=== PATIENT | male | born 1955 | race Caucasian/White ===

== ENCOUNTER 2017-04-15 07:54 | Observation (INO) | payer BC ==
[~2017-04-15] VITALS: Ht 182.9 cm; Wt 117.3 kg
[2017-04-15] VITALS (10 sets, daily range): BP systolic 114–172; BP diastolic 58–87
[2017-04-15] MEDS ORDERED: CARV12.52 PO (08:05)
[2017-04-15] MEDS ORDERED: CYCL10TA2 PO (08:05)
[2017-04-15] MEDS ORDERED: POTA20TA4 PO (08:05)
[2017-04-15] MEDS ORDERED: TRAM50TA PO (08:05)
[2017-04-15] MEDS ORDERED: OMEP40CA5 PO (08:05)
[2017-04-15] MEDS ORDERED: LEVO150T5 PO (08:05)
[2017-04-15] MEDS ORDERED: NAPR500T4 PO (08:05)
[2017-04-15] MEDS ORDERED: FURO40TA4 PO (08:05)
[2017-04-15 08:58] LABS: HEMATOCRIT 42.1 % (39.0-53.0); HEMOGLOBIN 14.2 g/dL (13.0-17.5); RED BLOOD COUNT 4.26 x10^6/uL (4.30-5.70); RED CELL DISTRIBUTION WIDTH 16.2 % (11.5-14.5); WHITE BLOOD COUNT 7.4 x10^3/uL (4.0-11.0)
[2017-04-15 09:08] LABS: INR 1.1 (0.8-1.1); PROTHROMBIN TIME PATIENT 13.2 SEC (11.7-14.0)
[2017-04-15 09:20] LABS: CALCIUM 8.9 mg/dL (8.5-10.1); GFR 75.7; POTASSIUM 3.4 mmol/L (3.5-5.1)
[2017-04-15] MEDS ORDERED: LIDOCAINE 2% 20 ML VIAL. ONE (11:12)
[2017-04-15] MEDS ORDERED: IODIXANOL 320 MG/ML 100 ML VIAL. ONE (11:12)
--- NOTE | 2017-04-15 11:20 | CARD ---
APPROVED REPORT EXAM: Two-dimensional and M-mode echocardiogram with Doppler and color Doppler. Other Information Quality : Good INDICATION Dyspnea 2D DIMENSIONS RVDd2.5 (2.9-3.5cm)Left Atrium(2D)4.4 (1.6-4.0cm) IVSd0.9 (0.7-1.1cm)Aortic Root(2D)2.9 (2.0-3.7cm) LVDd5.7 (3.9-5.9cm)LVOT Diameter2.4 (1.8-2.4cm) PWd1.0 (0.7-1.1cm)LVDs3.4 (2.5-4.0cm) FS (%) 30.0 %SV113.4 ml LVEF(%)60.0 (>50%) Aortic Valve AoV Peak Scott.121.6cm/sAoV VTI25.6cm AO Peak GR.5.9mmHgLVOT Peak Scott.79.2cm/s LVOT VTI 19.73cmAO Mean GR.4mmHg ROWDY (VMAX)2.48tx9ICN (VTI)3.37cm2 Mitral Valve MV E Qxkidvfv34.9cm/sMV DECEL VJUK256ug MV A Ejyfdyhh69.0cm/sMV QSG89in E/A Ratio2.2MVA (PHT)3.66cm2 TDI E/Lateral E'8.3E/Medial E'10.8 Pulmonary Vein S1 Aribnwtn04.3cm/sD2 Bfnmdezl89.2cm/s LEFT VENTRICLE The left ventricle is normal size. There is normal left ventricular wall thickness. The left ventricu lar systolic function is normal. The Ejection Fraction is 55-60%. There is normal LV segmental wall m otion. RIGHT VENTRICLE The right ventricle is normal size. The right ventricular systolic function is normal. ATRIA The left atrium is mildly dilated. The right atrium size is normal. The interatrial septum is intact with no evidence for an atrial septal defect or patent foramen ovale as noted on 2-D or Doppler imagi ng. AORTIC VALVE The aortic valve is calcified but opens well. Doppler and Color Flow revealed no significant aortic r egurgitation. There is no significant aortic valvular stenosis. MITRAL VALVE The mitral valve is normal in structure and function. There is no evidence of mitral valve prolapse. There is no mitral valve stenosis. Doppler and Color-flow revealed trace mitral regurgitation. TRICUSPID VALVE The tricuspid valve is normal in structure and function. Doppler and Color Flow revealed no tricuspid valve regurgitation noted. There is no tricuspid valve stenosis. PULMONIC VALVE The pulmonary valve is normal in structure and function. Doppler and Color Flow revealed no pulmonic valvular regurgitation. There is no pulmonic valvular stenosis. GREAT VESSELS The aortic root is normal in size. The ascending aorta is normal in size. The IVC is normal in size a nd collapses >50% with inspiration. PERICARDIAL EFFUSION There is no evidence of significant pericardial effusion. Critical Notification Critical Value: No <Conclusion> The left ventricular systolic function is normal. The Ejection Fraction is 55-60%. There is normal LV segmental wall motion. Doppler and Color-flow revealed trace mitral regurgitation. There is no evidence of significant pericardial effusion.
[2017-04-15] MEDS ORDERED: fentaNYL PF VIAL 250 MCG/5 ML VIAL ONE (11:31)
[2017-04-15] MEDS ORDERED: MIDAZOLAM HCL/PF 5 MG/5 ML VIAL. ONE (11:31)
[2017-04-15] MEDS ORDERED: HEPARIN for IV BOLUS 10,000 UNIT/10 ML VIAL. ONE (12:03)
[2017-04-15] MEDS ORDERED: LIDOCAINE 2% 20 ML VIAL. IJ ONE (12:15)
[2017-04-15] MEDS ORDERED: MIDAZOLAM HCL/PF 5 MG/5 ML VIAL. IV ONE (12:15)
[2017-04-15] MEDS ORDERED: fentaNYL PF VIAL 250 MCG/5 ML VIAL IV ONE (12:15)
[2017-04-15] MEDS ORDERED: IODIXANOL 320 MG/ML 100 ML VIAL. IART ONE (12:15)
[2017-04-15] MEDS ORDERED: HEPARIN for IV BOLUS 10,000 UNIT/10 ML VIAL. IV ONE (12:15)
[2017-04-15] MEDS ORDERED: NITROGLYCERIN 200 MCG/2 ML SYRINGE FOR CATH/VASC LAB. IART ONE (12:45)
[2017-04-15] MEDS ORDERED: CLOPIDOGREL BISULFATE 75 MG TABLET ONE (13:12)
[2017-04-15] MEDS ORDERED: CLOPIDOGREL BISULFATE 75 MG TABLET PO ONE (13:15)
[2017-04-15] MEDS ORDERED: NITROGLYCERIN 200 MCG/2 ML SYRINGE FOR CATH/VASC LAB. ONE (13:21)
[2017-04-15] MEDS ORDERED: ASPIRIN 325 MG TABLET PO ONE (13:30)
[2017-04-15] MEDS: IV 1/2 NORMAL SALINE 1,000 ML IV SCH (15:23)
--- NOTE | 2017-04-15 15:23 | PDOC ---
MODERATE SEDATION ASSESSMENT RISKS/ALTERNATIVES Risks/Alternatives Risks and alternatives of this type of sedation and procedure discussed with: RISK/ALTERNATIVES: Patient H & P ON CHART H & P H & P on chart and reviewed for co-morbid conditions and appropriate labs. H&P ON CHART: Yes STATUS PREG STATUS ASSESSED: N/A MEDS/ALLERGIES REVIEWED Meds/Allergies Reviewed Medications and Allergies including time and route of recently administered narcotics and sedatives. MEDS/ALLERGIES REVIEWED: Yes ASA RATING ASA RATING: II AIRWAY ASSESSMENT Airway Assessment Airway patency, oral function limitations, presence of caps, crowns, dentures, partials, and ability to extend neck assessed. AIRWAY ASSESSMENT: Yes MALLAMPATI SCORE MALLAMPATI SCORE: II PRE-SEDATION ASSESSMENT PRE-SEDATION ASSESSMENT: Yes YANET CALVERT MD Apr 15, 2017 15:22
[2017-04-15] MEDS ORDERED: MAGNESIUM HYDROXIDE 2,400 MG/30 ML ORAL.SUSP. PO PRN (15:30)
[2017-04-15] MEDS ORDERED: NITROGLYCERIN SUBLINGUAL 0.4 MG BOTTLE OF 25. SL PRN (15:30)
[2017-04-15] MEDS ORDERED: ACETAMINOPHEN 325 MG TABLET. PO PRN (15:30)
--- NOTE | 2017-04-15 15:43 | CARD ---
APPROVED REPORT Patient StatusOUT-PATIENT Program Developer: Stefano Boyd RT (R) Procedure(s) performed: 1. Aortogram with bilateral lower extremity runoff 2. Successful complex drug-coated balloon angioplasty and stent placement to chronic total occlusion involving the left superficial femoral artery Moderate Sedation: 109 min INDICATION FOR PROCEDURE The indication(s) include : Peripheral vascular disease with claudication. PROCEDURE NARRATIVE After explaining the risks, benefits and alternative options, informed consent was obtained from jeet ent. Patient was brought to the [facility] and her right groin was prepped and draped in the usu al fashion. 20 mL of 2% lidocaine was infiltrated into the skin and subcutaneous tissues for local an esthesia. Arterial access was obtained in the right common femoral artery and 5 Cambodian sheath was ins erted. 5 Cambodian pigtail catheter was used to perform aortogram with bilateral lower extremity runoff. FINDINGS 1. No significant stenosis involving the distal descending aorta, bilateral common iliac arteries. 2. 30% stenosis involving the left external iliac artery. No significant stenosis involving the righ t external iliac and bilateral common femoral arteries. 3. 40% stenosis involving the midsegment of the right superficial femoral artery. The left superfici al femoral artery showed 90% stenosis in the proximal to midsegment followed by 100% chronic total oc clusion in the midsegment with distal reconstitution from collaterals. 4. The right popliteal artery showed 30% stenosis. The left popliteal artery did not show any signif icant stenosis. 5. Vrjmp-sdd-abxk, there is two-vessel runoff in the right lower extremity with complete occlusion o f the right peroneal artery. The right posterior tibial artery showed moderate diffuse disease. There is three-vessel runoff below the knee in the left lower extremity. There is a 70-80% bifurcation grayson nosis noted involving the left tibioperoneal trunk, left posterior tibial and peroneal arteries. INTERVENTION The sheath in the right groin was exchanged to a 45 cm 6 Cambodian destination sheath that was advanced over the aortic gio with the help of a crossover catheter and the tip was positioned in the left c ommon femoral artery. The chronic total occlusion involving the left superficial femoral artery was c rossed with a 0.035 inch angled glide wire with backup support from 4 Cambodian angled glide catheter. C ontrast injections through the angled glide catheter conformed intraluminal position. This was then e xchanged to a 0.[address] guidewire. The long lesion was then dilated with 4.0 x 1 20 mm Ab Alloptic [place] balloon following which the lesion was treated successfully with a 5.0 x 1 50 mm Inppact drug-coated balloon. The midsegment was then treated with 5.5 x 1 50 mm Spectrum Bridge Supera self-expanding stent and the proximal segment was treated with overlapping 6.0 x 80 mm absolute Pro self-expanding s tent. Final angiography showed resolution of the stenosis to 0% with good distal flow. Patient tolera melvina the procedure well. Hemostasis in the right groin was achieved using Perclose suture closure ana maria ce. There were no immediate complications. Conclusion Successful drug-coated balloon angioplasty and stent placement to long chronic total occlusion involv ing the left superficial femoral artery. Recommendations Plavix 75 mg daily for atleast 4 weeks Vascular risk reduction program including regular exercise regimen
[2017-04-15] MEDS ORDERED: ALPRAZolam 0.5 MG TABLET PO PRN (19:15)
[2017-04-15] MEDS ORDERED: CYCLOBENZAPRINE 10 MG TABLET. PO PRN (19:15)
[2017-04-15] MEDS ORDERED: MORPHINE SULFATE 2 MG/ML DISP.SYRIN. IV PRN ×2 (19:15→19:30)
[2017-04-15] MEDS: traMADol 50 MG TABLET PO PRN (20:54)
[2017-04-15] MEDS: NAPROXEN 500 MG TABLET PO SCH (20:54)
[2017-04-16] MEDS: IV 1/2 NORMAL SALINE 1,000 ML IV SCH ×2 (03:29→11:23)
[2017-04-16 03:45] VITALS: BP 121/67
[2017-04-16 07:00] VITALS: BP 145/80
[2017-04-16] MEDS ORDERED: LEVOTHYROXINE 150 MCG TABLET PO SCH (07:00)
[2017-04-16] MEDS ORDERED: PANTOPRAZOLE 40 MG TABLET.DR. PO SCH (07:30)
[2017-04-16] MEDS ORDERED: CLOPIDOGREL BISULFATE 75 MG TABLET PO SCH (08:00)
[2017-04-16] MEDS ORDERED: CARVEDILOL 12.5 MG TABLET. PO SCH (08:00)
[2017-04-16] MEDS ORDERED: ASPIRIN ENTERIC COATED 325 MG TABLET.DR. PO SCH (08:00)
[2017-04-16] MEDS ORDERED: POTASSIUM CHLORIDE 20 MEQ TABLET.ER. PO SCH (09:00)
[2017-04-16] MEDS ORDERED: FUROSEMIDE 40 MG TABLET. PO SCH (09:00)
[2017-04-16] MEDS: NAPROXEN 500 MG TABLET PO SCH (09:17)
[2017-04-16] MEDS: traMADol 50 MG TABLET PO PRN (09:21)
[2017-04-16 11:00] VITALS: BP 165/74
== END 2017-04-16 13:44 | disposition home or self-care (01) ==
LOC: ECHO 07:54 → 2 NORTH 12:30 → INTOOBSV 12:30
PROVIDERS: ADMIT Internal Medicine Cardiovascular Disease; ATTEND Internal Medicine Cardiovascular Disease
DX: I73.9 Peripheral vascular disease, unspecified (principal); K21.9 Gastro-esophageal reflux disease without esophagitis; I10 Essential (primary) hypertension; R06.09 Other forms of dyspnea; Z72.0 Tobacco use; E78.5 Hyperlipidemia, unspecified; R42 Dizziness and giddiness; I31.3 Pericardial effusion (noninflammatory); M25.50 Pain in unspecified joint; R41.3 Other amnesia
CPT/HCPCS: 36415; 37224; 75630; 80048; 82962; 85027; 85610; 93306; 96374; 96375; C1725; C1769; C1771; C1877; C1892; C2623; G0269; G0378; G0379; J1644; J2250; J3010; J3490; 99152; 99153; J2001

== ENCOUNTER → 2019-02-06 | Outpatient (CLI) | payer BC ==
[~2019-02-06] MED LIST: CARV12.511 PO; CYCL10TA2 PO; FURO40TA4 PO; LEVO150T5 PO; NAPR-514 PO; OMEP40CA5 PO; POTA20TA4 PO; TRAM50TA PO
--- NOTE | 2019-02-06 16:38 | RAD ---
CLINICAL HISTORY: Right thyroid nodule COMPARISON: None available. PROCEDURE: Preliminary sonographic images of the thyroid gland were obtained. A 0.8 cm right lower pole thyroid nodule is seen. The procedure and risks of ultrasound guided aspiration were explained to the patient and informed written consent obtained. Verification pause was observed. Laterality was confirmed. The site of aspiration was marked. Using standard sterile technique, 25 G fine needle aspirations of the right thyroid gland were obtained. In addition, a single pass with a Rotex needle was also performed. There were no immediate complications. Performing physician: Dr. Truman Eisenberg Estimated blood loss: 0 mL IMPRESSION: Successful right thyroid nodule biopsy with ultrasound guidance. Electronically signed by: Truman Eisenberg MD (02/06/2019 4:35 PM) [facility]
--- NOTE | 2019-02-10 10:07 | PATHOLOGY ---
Note [facility] Accession Number: [id number] TESTS RESULT FLAG UNITS REF RANGE LAB Clinician Provided Cytology Information No. of containers..01 Other (Miscellaneous) Source: RT THYROID NODULE DIAGNOSIS: RT THYROID NODULE INADEQUATE, INSUFFICIENT CELLS FOR STUDY. BETHESDA CATEGORY I. UNSATISFACTORY. THIS INTERPRETATION INCLUDES EVALUATION OF A CELL BLOCK. Signed out by: Reji Harrison MD, Pathologist NPI- [id number] Performed by: Sherif Allison, Partnership Manager ([facility]) Gross description: 01 30ML, COLORLESS, CLEAR /LCS FLAG LEGEND: L-Low Normal,H-High Normal,LL-Alert Low,HH-Alert High <-Panic Low,>-Panic High,A-Abnormal,AA-Critical Abnormal Performed at: [address] [place] [address] Jalen Jin MD, [address] [facility] [address] [place] [address] Reji Harrison MD, Specimen Comment: A courtesy copy of this report has been sent to Specimen Comment: [phone], . Specimen Comment: Report sent to DR DA SILVA / DR JOSE Specimen Comment: A duplicate report has been generated due to demographic updates. Performed at: [address] [place] [address] [address], [place], [place] [id number] MD Jalen Jin MD Phone: [phone]
== END | disposition home or self-care (01) ==
LOC: US 10:24
PROVIDERS: ATTEND Surgery
DX: E04.1 Nontoxic single thyroid nodule (principal)
CPT/HCPCS: 10005; 60300; 76942; 88173; 88305

== ENCOUNTER 2019-08-31 07:01 | Observation (INO) | payer BC, MEDICARE ==
[~2019-08-31] VITALS: Ht 182.9 cm; Wt 118.4 kg
[~2019-08-31 07:01] MED LIST changes: +OMEP40CA45 PO; -OMEP40CA5 PO; +PERFLUTREN PROTEIN-A MICROSPHR 0.22 MG/ML 3 ML VIAL. IV ONE
[2019-08-31 07:26] LABS: HEMATOCRIT 47.8 % (39.0-53.0); HEMOGLOBIN 16.7 g/dL (13.0-17.5); RED BLOOD COUNT 4.67 x10^6/uL (4.30-5.70); RED CELL DISTRIBUTION WIDTH 13.6 % (11.5-14.5); WHITE BLOOD COUNT 11.6 x10^3/uL (4.0-11.0)
[2019-08-31 07:33] LABS: CALCIUM 9.7 mg/dL (8.5-10.1); CREATININE 1.1 mg/dL (0.7-1.3); GFR 67.4
[2019-08-31 07:34] LABS: PROTHROMBIN TIME PATIENT 12.7 SEC (11.7-14.0)
[2019-08-31] MEDS ORDERED: LIDOCAINE 1% Multi-Dose 20 ML VIAL. ONE (07:37)
[2019-08-31] MEDS ORDERED: HEPARIN for ARTERIAL LINE 1,500 ML ONE (07:37)
[2019-08-31] MEDS ORDERED: IODIXANOL 320 MG/ML 100 ML VIAL. ONE ×2 (07:38→11:03)
[2019-08-31 07:40] VITALS: BP 166/90
[2019-08-31] MEDS ORDERED: MIDAZOLAM HCL/PF 2 MG/2 ML VIAL. ONE ×2 (08:36→11:04)
[2019-08-31] MEDS ORDERED: fentaNYL PF VIAL 100 MCG/2 ML VIAL ONE ×2 (08:36→11:04)
[2019-08-31] MEDS ORDERED: HEPARIN for IV BOLUS 10,000 UNIT/10 ML VIAL. ONE (09:18)
[2019-08-31] MEDS ORDERED: NITROGLYCERIN 200 MCG/2 ML SYRINGE FOR CATH/VASC LAB. ONE ×2 (10:16→10:47)
[2019-08-31] MEDS ORDERED: IODIXANOL 320 MG/ML 100 ML VIAL. IART ONE (10:30)
[2019-08-31] MEDS ORDERED: NITROGLYCERIN 200 MCG/2 ML SYRINGE FOR CATH/VASC LAB. IART ONE (10:30)
[2019-08-31] MEDS ORDERED: fentaNYL PF VIAL 100 MCG/2 ML VIAL IV ONE (10:30)
[2019-08-31] MEDS ORDERED: HEPARIN for IV BOLUS 10,000 UNIT/10 ML VIAL. IV ONE (10:30)
[2019-08-31] MEDS ORDERED: MIDAZOLAM HCL/PF 2 MG/2 ML VIAL. IV ONE (10:30)
[2019-08-31] MEDS ORDERED: LIDOCAINE 1% Multi-Dose 20 ML VIAL. INJ ONE (10:30)
[2019-08-31] MEDS ORDERED: CLOPIDOGREL BISULFATE 75 MG TABLET PO ONE (11:15)
[2019-08-31] MEDS ORDERED: CLOPIDOGREL BISULFATE 75 MG TABLET ONE (11:28)
[2019-08-31] MEDS ORDERED: ASPIRIN CHEWABLE 81 MG TABLET. PO ONE (11:30)
[2019-08-31 11:51] VITALS: BP 177/95
[2019-08-31 12:19] VITALS: BP 174/78
[2019-08-31] MEDS ORDERED: ANTI-COAG MONITOR BY PHARMACY. MC PRN (12:30)
--- NOTE | 2019-08-31 12:54 | CARD ---
MR#: [id number] Date of Study: 08/31/2019 Ordering Physician: HAYDEE POWERS, Referring Physician: HAYDEE POWERS, Tech: Russell Randall APPROVED REPORT Patient [id number] Meat Soaker: Russell Randall Procedure(s) performed: fl time: 34.9 mins dose: 417 gycm2 contrast: 191 ml moderate sedation: 177 mins HISTORY The patient is a 63 year-old male with a history of : diabetes mellitus with treatment, coronary natali ry disease, tobacco history() , hypertension, dyslipidemia. INDICATION FOR PROCEDURE The indication(s) include : Bilateral claudication, Rest pain: Right lower extremity, Positive angiog louis for stenosis: . PROCEDURE NARRATIVE Clinical indication: 63-year-old male with significant lifestyle limiting claudication of the right lower extremity presen melvina to the catheterization laboratory for peripheral vascular intervention. After appropriate informe d consent the patient was brought to the [facility]. Procedure details: The left groin was prepped and draped in usual sterile fashion. Under lidocaine 2% anesthesia a 5 Wenceslao nch sheath was placed in the left common femoral artery. Subsequently digital subtraction aortography was performed as well as a right lower extremity runoff was performed with a 5 Palestinian Omni Flush cat heter which was also used to cross over into the right external iliac artery from the left common stepan ac artery. Findings: Aorta: No significant disease Bilateral renal arteries are patent without significant disease. Left common iliac artery has eccentric 30% stenosis at the ostium and proximal segment without a sign ificant pressure drop Left internal iliac artery is not well-visualized Left external iliac artery is without significant disease Left common femoral arteries without significant disease Visualized portion of the left SFA reveals 90% in-stent restenosis Right common iliac artery has no significant disease Right external iliac artery has no significant disease Right internal iliac artery is not well-visualized Right common femoral artery has no significant disease Right profunda has no significant disease Right SFA has a proximal 100% occlusion with reconstitution proximal to the abductor canal Right popliteal artery has mild diffuse disease The right TP trunk has a 90% stenosis at the level of the origin of the anterior tibial artery Right anterior tibial artery has no significant disease Right posterior tibial artery has mild to moderate diffuse disease Right peroneal artery has moderate diffuse disease Interventional technique: Heparin was used for anticoagulation. The 5 Palestinian Omni Flush catheter was exchanged for a 6 Palestinian d estination sheath. Next, a command ES wire with a quick cross catheter were used to traverse the occl usion. The command 0.014 inch ES wire was not able to cross the distal occlusion. The 014 quick cross catheter was then exchanged for a 0.035 inch angled glide catheter through which a 0.035 inch angled Glidewire was then able to cross the distal segment of the occlusion. True lumen entry was confirmed with contrast injection. Next, the wire was exchanged for a 0.014 inch command wire which was placed in the posterior tibial artery. Balloon angioplasty was performed of the tibial trifurcation with a 3.0 and 4.0 mm balloons at nominal pressures. Next, sequential balloon angioplasty was performed of the SFA from the level of the adequate canal to the ostium using 4.0 x 100 mm, 5.0 x 120 mm drug-coat ed balloon and a 6.0 x 100 mm drug-coated balloon. Residual stenosis and dissection was then re-angio plastied with a 5.0 x 60 mm balloon and 6.0 x 40 mm balloon at the ostium. There is ujv-zavm-qxvdtzgm dissection at the ostium and the mid SFA. Due to robust three-vessel runoff in the lower extremity a nd excellent dopplerable pulses further intervention was deferred. The left-sided sheath was removed and hemostasis was obtained with a Angio-Seal device. The patient received aspirin, Plavix and Rivaroxaban. No acute complications noted. This was a complex case due to complete occlusion and significant calcification making crossing the s tenosis difficult. Conclusion 1. Severe lifestlye limiting RLE claudication 2. Successful PVI of the SFA with a 5.0 and 6.0 Paclitaxel coated balloons. 3. Successful PVI of the TP trunk with a 3.0 and 4.0 compliant balloons. Recommendations ASA 81mg daily Plavix 75mg daily Xarelto 2.5mg bid Continue risk factor modification Signed by : Haydee Powers, Electronically Approved : 08/31/2019 12:54:13
[2019-08-31 15:00] VITALS: BP 149/65
--- NOTE | 2019-08-31 15:10 | NUR ---
Left groin site dry and intact prior to patient getting up at bedside to use urinal. Left groin bleeding at this time. Placed patient in bedrest and held pressure on left groin and called laborer [employer] staffs for help.
[2019-08-31] MEDS ORDERED: CYCLOBENZAPRINE 10 MG TABLET. PO PRN (16:30)
[2019-08-31] MEDS: CARVEDILOL 12.5 MG TABLET. PO SCH (16:57)
[2019-08-31] MEDS: RIVAROXABAN 10 MG TABLET. PO SCH (16:57)
[2019-08-31] MEDS: traMADol 50 MG TABLET PO PRN ×2 (16:57→20:32)
--- NOTE | 2019-08-31 16:57 | PDOC1 ---
History and Physical Visit Information Date of Admission: Aug 31, 2019 at 10:10 Source: Patient History of Present Illness History of Present Illness Late entry 63-year-old man with past history of tobacco abuse, PAD status post intervention to his left leg, hypertension, dyslipidemia who presented to the office in June 2019 with worsening lifestyle limiting right lower extremity claudication. His exam was suggestive of severe SFA disease. Ultimately, he decided to proceed with PVI. He presents today for intervention. Past Surgical History Comments As noted above Current Medications Current Medications Current Medications Aspirin (Children'S Aspirin) 324 mg 1X ONCE PO Last administered on 08/31/19at 11:36; Start 08/31/19 at 11:30; Stop 08/31/19 at 11:31; Status DC Carvedilol (Coreg) 12.5 mg BIDWMEALS PO ; Start 08/31/19 at 17:00 Clopidogrel Bisulfate (Plavix) 75 mg STK-MED ONCE .ROUTE ; Start 08/31/19 at 11:28; Stop 08/31/19 at 11:28; Status DC Clopidogrel Bisulfate (Plavix) 600 mg 1X ONCE PO Last administered on 08/31/19at 11:37; Start 08/31/19 at 11:15; Stop 08/31/19 at 11:22; Status DC Cyclobenzaprine HCl (Flexeril) 10 mg TID PRN PO MUSCLE PAIN; Start 08/31/19 at 16:30 Fentanyl Citrate (Fentanyl 2ml Vial) 100 mcg 1X ONCE IV Last administered on 08/31/19at 11:40; Start 08/31/19 at 10:30; Stop 08/31/19 at 10:31; Status DC Fentanyl Citrate (Fentanyl 2ml Vial) 100 mcg STK-MED ONCE .ROUTE ; Start 08/31/19 at 08:36; Stop 08/31/19 at 08:36; Status DC Fentanyl Citrate (Fentanyl 2ml Vial) 100 mcg STK-MED ONCE .ROUTE ; Start 08/31/19 at 11:04; Stop 08/31/19 at 11:04; Status DC Furosemide (Lasix) 40 mg DAILY PO ; Start 09/01/19 at 09:00 Heparin Sodium (Porcine) (Heparin Sodium) 7,500 unit 1X ONCE IV Last administered on 08/31/19at 11:41; Start 08/31/19 at 10:30; Stop 08/31/19 at 10:31; Status DC Heparin Sodium (Porcine) (Heparin Sodium) 10,000 unit STK-MED ONCE .ROUTE ; Start 08/31/19 at 09:18; Stop 08/31/19 at 09:18; Status DC Heparin Sodium/ Sodium Chloride 500 ml @ As Directed STK-MED ONCE .ROUTE ; Start 08/31/19 at 09:35; Stop 08/31/19 at 09:35; Status DC Heparin Sodium/ Sodium Chloride 1,500 ml @ As Directed STK-MED ONCE .ROUTE ; Start 08/31/19 at 07:37; Stop 08/31/19 at 07:38; Status DC Heparin Sodium/ Sodium Chloride (HEPARIN for ARTERIAL LINE FLUSH) 1,000 unit 1X ONCE IART Last administered on 08/31/19at 11:35; Start 08/31/19 at 10:30; Stop 08/31/19 at 10:31; Status DC Heparin Sodium/ Sodium Chloride (HEPARIN for ARTERIAL LINE FLUSH) 1,000 unit 1X ONCE IART Last administered on 08/31/19at 11:35; Start 08/31/19 at 10:30; Stop 08/31/19 at 10:31; Status DC Heparin Sodium/ Sodium Chloride (HEPARIN for ARTERIAL LINE FLUSH) 1,000 unit 1X ONCE IV Last administered on 08/31/19at 11:36; Start 08/31/19 at 10:30; Stop 08/31/19 at 10:31; Status DC Info (Anti-Coagulation Monitoring By Pharmacy) 1 each PRN DAILY PRN MC SEE COMMENTS; Start 08/31/19 at 12:30 Iodixanol (Visipaque 320) 100 ml 1X ONCE IART Last administered on 08/31/19at 11:36; Start 08/31/19 at 10:30; Stop 08/31/19 at 10:31; Status DC Iodixanol (Visipaque 320) 100 ml STK-MED ONCE .ROUTE ; Start 08/31/19 at 07:38; Stop 08/31/19 at 07:38; Status DC Iodixanol (Visipaque 320) 100 ml STK-MED ONCE .ROUTE ; Start 08/31/19 at 11:03; Stop 08/31/19 at 11:04; Status DC Levothyroxine Sodium (Synthroid) 150 mcg DAILY PO ; Start 09/01/19 at 09:00 Lidocaine HCl (Lidocaine 1% 20ml Vial) 20 ml 1X ONCE INJ Last administered on 08/31/19at 11:39; Start 08/31/19 at 10:30; Stop 08/31/19 at 10:31; Status DC Lidocaine HCl (Lidocaine 1% 20ml Vial) 20 ml STK-MED ONCE .ROUTE ; Start 08/31/19 at 07:37; Stop 08/31/19 at 07:37; Status DC Midazolam HCl (Versed) 2 mg 1X ONCE IV Last administered on 08/31/19at 11:40; Start 08/31/19 at 10:30; Stop 08/31/19 at 10:31; Status DC Midazolam HCl (Versed) 2 mg STK-MED ONCE .ROUTE ; Start 08/31/19 at 08:36; Stop 08/31/19 at 08:36; Status DC Midazolam HCl (Versed) 2 mg STK-MED ONCE .ROUTE ; Start 08/31/19 at 11:04; Stop 08/31/19 at 11:04; Status DC Naproxen (Naprosyn) 500 mg BID PO ; Start 08/31/19 at 21:00 Nitroglycerin (Nitroglycerin) 200 mcg 1X ONCE IART Last administered on 08/31/19at 11:39; Start 08/31/19 at 10:30; Stop 08/31/19 at 10:31; Status DC Nitroglycerin (Nitroglycerin) 200 mcg STK-MED ONCE .ROUTE ; Start 08/31/19 at 10:16; Stop 08/31/19 at 10:17; Status DC Nitroglycerin (Nitroglycerin) 200 mcg STK-MED ONCE .ROUTE ; Start 08/31/19 at 10:47; Stop 08/31/19 at 10:47; Status DC Pantoprazole Sodium (Protonix) 40 mg DAILYAC PO ; Start 09/01/19 at 07:30 Potassium Chloride (Klor-Con) 20 meq DAILY PO ; Start 09/01/19 at 09:00 Rivaroxaban (Xarelto) 2.5 mg BIDWMEALS PO ; Start 08/31/19 at 17:00; Stop 09/01/19 at 16:59 Tramadol HCl (Ultram) 50 mg PRN Q6HRS PRN PO PAIN; Start 08/31/19 at 16:30 Allergies Allergies Allergies Coded Allergies Type Severity Reaction Last Updated Verified Tzesyge-Zgg-Jip Reductase Inhibitor Allergy Unknown 04/15/17 Yes Social History Comments He was a one pack per day smoker until last week. Denies any illicit drug use. He is retired. He is . ROS Review of System He has lifestyle limiting right lower extremity greater than left lower ext claudication. Physical Exam General: Alert, Oriented X3 HEENT: Atraumatic Lungs: Clear to auscultation Heart: Regular rate CHEST: Clear to auscultation Abdomen: Normal bowel sounds Extremities: Other (severely diminished pedal pulses) VASCULAR: Upper extremity (2+ radial pulses) Vitals VITALS Vital Signs Date Time Temp Pulse Resp B/P (MAP) Pulse Ox O2 Delivery O2 Flow Rate FiO2 08/31/19 12:19 97.5 67 18 174/78 (110) 95 Room Air 97.5 08/31/19 11:51 2.0 Labs Labs Laboratory Tests Test 08/31/19 07:20 08/31/19 08:45 08/31/19 09:43 08/31/19 10:16 White Blood Count 11.6 x10^3/uL (4.0-11.0) Red Blood Count 4.67 x10^6/uL (4.30-5.70) Hemoglobin 16.7 g/dL (13.0-17.5) Hematocrit 47.8 % (39.0-53.0) Mean Corpuscular Volume 102 fL (79-100) Mean Corpuscular Hemoglobin 36 pg (25-35) Mean Corpuscular Hemoglobin Concent 35 g/dL (31-37) Red Cell Distribution Width 13.6 % (11.5-14.5) Platelet Count 323 x10^3/uL (140-400) Prothrombin Time 12.7 SEC (11.7-14.0) Prothromb Time International Ratio 1.0 (0.8-1.1) Sodium Level 141 mmol/L (136-145) Potassium Level 4.0 mmol/L (3.5-5.1) Chloride Level 104 mmol/L (98-107) Carbon Dioxide Level 26 mmol/L (21-32) Anion Gap 11 (6-14) Blood Urea Nitrogen 23 mg/dL (8-26) Creatinine 1.1 mg/dL (0.7-1.3) Estimated GFR (Cockcroft-Gault) 67.4 Glucose Level 124 mg/dL (70-99) Calcium Level 9.7 mg/dL (8.5-10.1) Activated Clotting Time 227 sec (92-181) 195 sec (92-181) 199 sec (92-181) Laboratory Tests Test 08/31/19 07:20 08/31/19 08:45 08/31/19 09:43 08/31/19 10:16 White Blood Count 11.6 x10^3/uL (4.0-11.0) Red Blood Count 4.67 x10^6/uL (4.30-5.70) Hemoglobin 16.7 g/dL (13.0-17.5) Hematocrit 47.8 % (39.0-53.0) Mean Corpuscular Volume 102 fL (79-100) Mean Corpuscular Hemoglobin 36 pg (25-35) Mean Corpuscular Hemoglobin Concent 35 g/dL (31-37) Red Cell Distribution Width 13.6 % (11.5-14.5) Platelet Count 323 x10^3/uL (140-400) Prothrombin Time 12.7 SEC (11.7-14.0) Prothromb Time International Ratio 1.0 (0.8-1.1) Sodium Level 141 mmol/L (136-145) Potassium Level 4.0 mmol/L (3.5-5.1) Chloride Level 104 mmol/L (98-107) Carbon Dioxide Level 26 mmol/L (21-32) Anion Gap 11 (6-14) Blood Urea Nitrogen 23 mg/dL (8-26) Creatinine 1.1 mg/dL (0.7-1.3) Estimated GFR (Cockcroft-Gault) 67.4 Glucose Level 124 mg/dL (70-99) Calcium Level 9.7 mg/dL (8.5-10.1) Activated Clotting Time 227 sec (92-181) 195 sec (92-181) 199 sec (92-181) ECG EKG: NSR VTE Prophylaxis Ordered VTE Prophylaxis Devices: No VTE Pharmacological Prophylaxi: No Assessment/Plan Assessment/Plan 1. Severe bilateral lower ext arterial disease with some mild element of rest pain. Plan for aortogram with intervention as needed HAYDEE POWERS MD Aug 31, 2019 16:57
[2019-08-31 19:00] VITALS: BP 143/64
[2019-08-31] MEDS ORDERED: CALCIUM CARBONATE 500 MG TAB.CHEW PO PRN (20:00)
--- NOTE | 2019-08-31 20:30 | NUR ---
Pt in bed assessment completed vss poc explained, pt denied pain at time of assessment pt at bedside pt s/p runoff site soft and dressing d&I call light in reach will resume care and continue to monitor pt.
[2019-08-31] MEDS: NAPROXEN 500 MG TABLET PO SCH (20:32)
[2019-08-31 22:39] VITALS: BP 154/70
--- NOTE | 2019-09-01 01:09 | NUR ---
change of care note: Pt sleeping report given to Pham Farrell
[2019-09-01 03:00] VITALS: BP 131/67
[2019-09-01 07:00] VITALS: BP 138/69
[2019-09-01] MEDS ORDERED: PANTOPRAZOLE 40 MG TABLET.DR. PO SCH (07:30)
[2019-09-01] MEDS: NAPROXEN 500 MG TABLET PO SCH (07:51)
[2019-09-01] MEDS: CARVEDILOL 12.5 MG TABLET. PO SCH (07:52)
[2019-09-01] MEDS: RIVAROXABAN 10 MG TABLET. PO SCH (07:53)
[2019-09-01] MEDS: traMADol 50 MG TABLET PO PRN (07:57)
[2019-09-01] MEDS ORDERED: CLOPIDOGREL BISULFATE 75 MG TABLET PO SCH (08:00)
[2019-09-01] MEDS ORDERED: ASPIRIN ENTERIC COATED 81 MG TABLET.DR. PO SCH (08:00)
[2019-09-01] MEDS ORDERED: POTASSIUM CHLORIDE 20 MEQ TABLET.ER. PO SCH (09:00)
[2019-09-01] MEDS ORDERED: LEVOTHYROXINE 150 MCG TABLET PO SCH (09:00)
[2019-09-01] MEDS ORDERED: FUROSEMIDE 40 MG TABLET. PO SCH (09:00)
[2019-09-01 11:00] VITALS: BP 137/72
--- NOTE | 2019-09-01 11:29 | NUR ---
SS following for discharge planning. SS reviewed pt chart. Pt is from home with spouse and is currently on room air. SS will continue to follow for discharge planning.
--- NOTE | 2019-09-01 11:45 | PDOC3 ---
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8 % (39.0-53.0) Mean Corpuscular Volume 102 fL (79-100) Mean Corpuscular Hemoglobin 36 pg (25-35) Mean Corpuscular Hemoglobin Concent 35 g/dL (31-37) Red Cell Distribution Width 13.6 % (11.5-14.5) Platelet Count 323 x10^3/uL (140-400) Prothrombin Time 12.7 SEC (11.7-14.0) Prothromb Time International Ratio 1.0 (0.8-1.1) Sodium Level 141 mmol/L (136-145) Potassium Level 4.0 mmol/L (3.5-5.1) Chloride Level 104 mmol/L (98-107) Carbon Dioxide Level 26 mmol/L (21-32) Anion Gap 11 (6-14) Blood Urea Nitrogen 23 mg/dL (8-26) Creatinine 1.1 mg/dL (0.7-1.3) Estimated GFR (Cockcroft-Gault) 67.4 Glucose Level 124 mg/dL (70-99) Calcium Level 9.7 mg/dL (8.5-10.1) Triglycerides Level 245 mg/dL (0-150) Cholesterol Level 256 mg/dL (0-200) LDL Cholesterol, Calculated 175 mg/dL (0-100) VLDL Cholesterol, Calculated 49 mg/dL (0-40) Non-HDL Cholesterol Calculated 224 mg/dL (0-129) HDL Cholesterol 32 mg/dL (40-60) Cholesterol/HDL Ratio 8.0 Activated Clotting Time 227 sec (92-181) 195 sec (92-181) 199 sec (92-181) Brief Hospital Course Mr. Pierce is a 63 yo male admitted for planned abdominal aortogram/runoff due to symptoms of leg claudication. Noted instent restenosis 90% in his LSFA but his main symptoms are to his RLE noting with proximal 100% occlusion with reconstitution proximal to the abductor canal and the right TP trunk has a 90% stenosis at the level of the origin of the anterior tibial artery. There are no leg wounds. He had a complex but successful PVI of the RSFA with a 5.0 and 6.0 Paclitaxel coated balloons and successful PVI of the TP trunk with a 3.0 and 4.0 compliant balloons. He tolerated the procedure well without immediate complications. He is ambulatory without difficulty and no complains of leg pain post op with ambulation. Will readdress his LSFA disease as an outpt depending on his symptomatology. Overnight he did well, no CP, no SOA. AOx3, VSS. LSCTA and left groin arteriotomy site intact with dry dressing, no tenderness, swelling or erythema. Neurovascular status to bilateral LE intact. Again reinforced smoking cessation, diet modification with dietitian to see pt prior to DC, wtloss, and gradual increase exercise. DC with Rx given for plavix and very low dose xarelto in addition to his meds. OTC ECASA 81 mg daily. He is intolerant to statin and his LDL is 175. Insurance coverage verification is pending in regards to which PCSK9i use and will start either praluent or repatha as an outpt. Follow up in office as scheduled. 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, #30 Ref 3 Prescribed by: NGUYEN RODRIGUEZ on 09/01/19 115 Furosemide (Furosemide) 40 Mg Tablet, 1 TAB PO DAILY, #30 Ref 5 (Reported) Entered as Reported by: ELIO BOWERS on 04/15/17804 Last Action: Continued on 08/31/191622 by Valerio Ogden Levothyroxine Sodium (Levothyroxine Sodium) 150 Mcg Tablet, 1 TAB PO DAILY, #30 Ref 5 (Reported) Entered as Reported by: ELIO BOWERS on 04/15/17804 Last Action: Continued on 08/31/191622 by Valerio Ogden Omeprazole (Omeprazole) 40 Mg Capsule.dr, 1 CAP PO DAILY, #30 Ref 3 (Reported) Entered as Reported by: ELIO BOWERS on 04/15/17804 Last Action: Converted on 08/31/191622 by Valerio Ogden Potassium Chloride (Klor-Con M20) 20 Meq Tab.er.prt, 1 TAB PO DAILY, #90 Ref 1 (Reported) Entered as Reported by: ELIO BOWERS on 04/15/17804 Last Action: Continued on 08/31/191622 by Valerio Ogden Rivaroxaban (Xarelto) 10 Mg Tablet, 2.5 MG PO BID for severe PAD, #60 Ref 3 Prescribed by: NGUYEN RODRIGUEZ on 09/01/19 1152 Tramadol Hcl (Tramadol Hcl) 50 Mg Tablet, 1 TAB PO PRN Q6HRS, #30 (Reported) Entered as Reported by: ELIO BOWERS on 04/15/17804 Last Taken: Unknown Dose on 08/31/19 Last Action: Continued on 08/31/191622 by Valerio Ogden Scheduled PRN Cyclobenzaprine Hcl (Cyclobenzaprine Hcl) 10 Mg Tablet, 1 TAB PO TID PRN for MUSCLE PAIN, #90 (Reported) Entered as Reported by: ELIO ELISSA on 04/15/17804 Last Action: Continued on 08/31/191622 by Valerio Ogden Discontinued Medications Naproxen (Naproxen) 500 Mg Tablet, 1 TAB PO BID, #60 Ref 1 (Reported) Entered as Reported by: ELIO ELISSA on 04/15/17804 Last Action: Continued on 08/31/191622 by Valerio Ogden Patient Instructions Patient Instructions GENERAL INSTRUCTIONS: 1. Your dressing should be removed prior to leaving the hospital. 2. It is OK to shower the day after your procedure. 3. If you received stents, be sure to carry your stent information card with you in your wallet/purse at all times. 4. Call the office immediately at [phone] if you notice any fever or if there is redness, worsening tenderness/pain, increased bruising, or drainage from the puncture site. 5. Should you have bleeding from the site, lie down immediately & put pressure on the site. The pressure should be hard enough to stop the bleeding. Have the nearest person call 911. DO NOT try to drive to the ER with active bleeding. 6. If you notice a change in color, coolness to touch, or loss of feeling in the affected extremity, come to the emergency room. Please have someone drive you or call 911 if no one is available. DO NOT drive yourself. 7. If you normally take glucophage (metformin), please do not take this medicine for 48 hours following your procedure. 8. DO NOT STOP TAKING YOUR PLAVIX OR ASPIRIN UNLESS IT IS CLEARED BY A OBSTETRICS/GYNECOLOGY NURSE OF YOUR LAWYER REAL ESTATE AT OUR OFFICE. 9. QUIT SMOKING: the [place] [employer], [employer], & [employer] have cessation resources available on their websites 10. Please have someone available to drive you home from the hospital as you may be limited by sedation medications given during the procedure. Femoral (Groin) access: 1. Do no lifting, pushing, pulling, bending, stooping, or recurrent stair climbing for 3 days following your procedure. 2. Once past the first 3 days, do not do any HEAVY exertion or lifting for one week following the procedure. No gym workouts, running, lifting greater than a gallon of milk, etc 3. Do not submerge in bath or pool for one week. OK to drive 3 days following your procedure, but if going long distance, do not go alone & take hourly breaks to get out of car and walk around. Call the office at [phone] for any questions or concerns. HAYDEE POWERS MD 09/01/19 6099: Discharge Summary Brief Hospital Course Brief Hospital Course Pt. seen and examined. 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 63 y.o male s/p R leg PVI for lifestyle limiting claudication. Doing well this morning. Left groin is c/d/i Warm RLE with improved color/cap refill Plan for lipid therapy, quit smoking, start asa, plavix and xarelto discussed with patient and . after outpt visit, consider PVI of the LLE on an elective basis. 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, #30 Ref 3 Prescribed by: NGUYEN RODRIGUEZ on 09/01/19 1152 Furosemide (Furosemide) 40 Mg Tablet, 1 TAB PO DAILY, #30 Ref 5 (Reported) Entered as Reported by: ELIO BOWERS on 04/15/17804 Last Action: Continued on 08/31/191622 by Valerio Ogden Levothyroxine Sodium (Levothyroxine Sodium) 150 Mcg Tablet, 1 TAB PO DAILY, #30 Ref 5 (Reported) Entered as Reported by: ELIO BOWERS on 04/15/17804 Last Action: Continued on 08/31/191622 by Valerio Ogden Omeprazole (Omeprazole) 40 Mg Capsule., 1 CAP PO DAILY, #30 Ref 3 (Reported) Entered as Reported by: ELIO BOWERS on 04/15/17804 Last Action: Converted on 08/31/191622 by Valerio Ogden Potassium Chloride (Klor-Con M20) 20 Meq Tab.er.prt, 1 TAB PO DAILY, #90 Ref 1 (Reported) Entered as Reported by: ELIO BOWERS on 04/15/17804 Last Action: Continued on 08/31/191622 by Valerio Ogden Rivaroxaban (Xarelto) 10 Mg Tablet, 2.5 MG PO BID for severe PAD, #60 Ref 3 Prescribed by: NGUYEN RODRIGUEZ on 09/01/19 1152 Tramadol Hcl (Tramadol Hcl) 50 Mg Tablet, 1 TAB PO PRN Q6HRS, #30 (Reported) Entered as Reported by: ELIO BOWERS on 04/15/17804 Last Taken: Unknown Dose on 08/31/19 Last Action: Continued on 08/31/191622 by Valerio Ogden Scheduled PRN Cyclobenzaprine Hcl (Cyclobenzaprine Hcl) 10 Mg Tablet, 1 TAB PO TID PRN for MUSCLE PAIN, #90 (Reported) Entered as Reported by: ELIO BOWERS on 04/15/17804 Last Action: Continued on 08/31/191622 by Valerio Ogden Discontinued Medications Naproxen (Naproxen) 500 Mg Tablet, 1 TAB PO BID, #60 Ref 1 (Reported) Entered as Reported by: ELIO BOWERS on 04/15/17804 Last Action: Continued on 08/31/191622 by NGUYEN Reyes APRN Sep 01, 2019 11:45 HAYDEE POWERS MD Sep 01, 2019 14:45
[2019-09-01] MEDS ORDERED: CLOP75TA PO (11:52)
[2019-09-01] MEDS ORDERED: RIVA10TA PO (11:52)
[2019-09-01] MEDS ORDERED: ASPI-612 PO (11:53)
--- NOTE | 2019-09-01 14:30 | NUR ---
Patient discharged to home. PIV and heart monitor removed. escorted patient off unit per wheelchair into a private vehicle.
== END 2019-09-01 14:30 | disposition home or self-care (01) ==
LOC: CCL 07:01 → 2 NORTH 10:10 → INTOOBSV 10:10
PROVIDERS: ADMIT Internal Medicine Cardiovascular Disease; ATTEND Internal Medicine Cardiovascular Disease
DX: I70.211 Atherosclerosis of native arteries of extremities with intermittent claudication, right leg (principal); I10 Essential (primary) hypertension; E78.5 Hyperlipidemia, unspecified; F17.200 Nicotine dependence, unspecified, uncomplicated; Z79.82 Long term (current) use of aspirin
CPT/HCPCS: 36415; 37224; 37228; 75625; 75716; 80048; 80061; 85027; 85347; 85610; 96374; 96375; C1725; C1760; C1769; C1892; C1894; C2623; G0269; G0378; G0379; J1644; J2250; J3010; J3490; Q9967; 75710; 99152; 99153; C1771

== ENCOUNTER → 2019-10-27 | Outpatient (CLI) | payer MEDICARE, BC ==
[~2019-10-27] MED LIST changes: +ASPI-612 PO; +CLOP75TA PO; -PERFLUTREN PROTEIN-A MICROSPHR 0.22 MG/ML 3 ML VIAL. IV ONE; +RIVA10TA PO
--- NOTE | 2019-10-27 15:28 | RAD ---
EXAMINATION: Magnetic resonance imaging (MRI) of the lumbar spine without contrast 10/27/2019 2:45 PM HISTORY: Lumbar radiculopathy TECHNIQUE: Multiplanar multi-weighted MRI of the lumbar spine was performed without intravenous contrast using the standard lumbar spine protocol. Contrast information: None administered. COMPARISON: CT lumbar spine 09/20/2019. FINDINGS: The alignment of the lumbar spine is normal. There is a superior plate fracture at L5 involving the posterior superior endplate without significant height loss. Minimal amount of gas within the superior endplate could reflect osteonecrosis. Vacuum disc phenomenon is identified at L4-L5. There is associated edema and fluid within theThe posterior superior plate of L5. Otherwise, marrow signal intensity is normal in all sequences. Osseous hemangioma is noted at L1. Modic type II endplate degenerative changes are identified anteriorly at L1-L2, L2-L3 and L3-L4. Modic type II endplate degenerative changes are identified at L5-S1 with mild to moderate disc height loss. Conus medullaris terminates at the level of L1. The distal spinal cord signal intensity is normal. There is epidural lipomatosis throughout the lumbar spine, most prominent at L2-L3, L3-L4 and L4-L5. Disc desiccation is noted at all levels of the lumbar spine. Limited views of the abdomen and pelvis show no soft tissue abnormality. The aorta is normal. L1-L2: Mild disc bulge. No significant facet arthropathy. No neuroforaminal or spinal canal stenosis. L2-L3: There is mild disc bulge. Mild facet arthropathy. Mild spinal canal stenosis, exacerbated by epidural lipomatosis. L3-L4: There is mild disc bulge. Mild facet arthropathy with ligamentum flavum infolding. Mild spinal canal stenosis secondary to epidural lipomatosis. There is mild narrowing of the right lateral recess. L4-L5: There is a moderate disc bulge with left far lateral annular fissure. There is moderate spinal canal stenosis secondary to epidural lipomatosis. Mild facet arthropathy. Moderate right and mild left neuroforaminal stenosis. L5-S1: There is mild disc bulge asymmetric to the right. Mild facet arthropathy. No significant neuroforaminal stenosis. There is moderate to severe narrowing the thecal sac secondary to epidural lipomatosis. IMPRESSION: Superior endplate compression fracture with edema involving the posterior superior endplate of L5 without significant height loss or retropulsion. No epidural hematoma. Findings are stable from prior CT lumbar spine 09/20/2019. Mild degenerative changes of the lumbar spine as described in detail above. Electronically signed by: Marie Robledo MD (10/27/2019 3:25 PM) [id number]
== END | disposition home or self-care (01) ==
LOC: MRI 14:01
PROVIDERS: ATTEND Physician Assistant Medical
DX: M48.56XA Collapsed vertebra, not elsewhere classified, lumbar region, initial encounter for fracture (principal); M51.16 Intervertebral disc disorders with radiculopathy, lumbar region; M12.88 Other specific arthropathies, not elsewhere classified, other specified site; M48.07 Spinal stenosis, lumbosacral region; E88.2 Lipomatosis, not elsewhere classified; M47.896 Other spondylosis, lumbar region
CPT/HCPCS: 72148

== ENCOUNTER 2020-11-15 06:59 | Outpatient (CLI) | payer MEDICARE, BC ==
[2020-11-15] VITALS (16 sets, daily range): BP systolic 119–182; BP diastolic 9–80
[~2020-11-15] VITALS: Ht 182.9 cm; Wt 132.5 kg
[~2020-11-15 06:59] MED LIST changes: -ASPI-612 PO; +ASPI-886 PO
[2020-11-15] MEDS ORDERED: GABA600T7 PO (07:20)
[2020-11-15] MEDS ORDERED: NAPR500T8 PO (07:20)
[2020-11-15 07:34] LABS: HEMATOCRIT 39.4 % (39.0-53.0); HEMOGLOBIN 13.4 g/dL (13.0-17.5); RED BLOOD COUNT 4.11 x10^6/uL (4.30-5.70); RED CELL DISTRIBUTION WIDTH 13.8 % (11.5-14.5); WHITE BLOOD COUNT 10.4 x10^3/uL (4.0-11.0)
[2020-11-15] MEDS ORDERED: LIDOCAINE 1% Multi-Dose 20 ML VIAL. ONE (07:38)
[2020-11-15] MEDS ORDERED: IODIXANOL 320 MG/ML 100 ML VIAL. ONE (07:38)
[2020-11-15] MEDS ORDERED: HEPARIN for ARTERIAL LINE 1,500 ML ONE (07:38)
[2020-11-15 07:44] LABS: PROTHROMBIN TIME PATIENT 12.9 SEC (11.7-14.0)
[2020-11-15 07:52] LABS: CALCIUM 8.6 mg/dL (8.5-10.1); CREATININE 1.2 mg/dL (0.7-1.3); GFR 60.6
[2020-11-15] MEDS ORDERED: MIDAZOLAM HCL/PF 2 MG/2 ML VIAL. ONE (08:24)
[2020-11-15] MEDS ORDERED: HEPARIN for IV BOLUS 10,000 UNIT/10 ML VIAL. ONE (08:25)
[2020-11-15] MEDS ORDERED: fentaNYL PF VIAL 100 MCG/2 ML VIAL ONE ×2 (08:25→13:08)
[2020-11-15] MEDS: LIDOCAINE 1% Multi-Dose 20 ML VIAL. INJ ONE (09:25)
[2020-11-15] MEDS: IODIXANOL 320 MG/ML 100 ML VIAL. IART ONE (09:25)
[2020-11-15] MEDS: MIDAZOLAM HCL/PF 2 MG/2 ML VIAL. IV ONE (09:26)
[2020-11-15] MEDS: fentaNYL PF VIAL 100 MCG/2 ML VIAL IV ONE (09:26)
[2020-11-15] MEDS: HEPARIN for IV BOLUS 10,000 UNIT/10 ML VIAL. IV ONE (09:27)
[2020-11-15] MEDS: ASPIRIN 325 MG TABLET PO ONE (09:45)
[2020-11-15] MEDS: CLOPIDOGREL BISULFATE 75 MG TABLET PO ONE (09:45)
[2020-11-15] MEDS ORDERED: CLOP75TA PO (09:46)
[2020-11-15] MEDS ORDERED: ASPI325T8 PO (09:46)
[2020-11-15] MEDS ORDERED: CLOPIDOGREL BISULFATE 75 MG TABLET ONE ×2 (10:30→10:31)
[2020-11-15] MEDS ORDERED: ASPIRIN 325 MG TABLET ONE (10:31)
--- NOTE | 2020-11-15 12:25 | NUR ---
No bleeding at access site. Patient able to ambulate to restroom, change clothing. No bleeding. Instructions provided on site care, sedation, PVD. Patient given Dr. Vargas's office number. Will schedule followup appt in 2-4 weeks, as requested by . ASA, [facility] One dose given to patient prior to d/c. Se EMAR.
[2020-11-15] MEDS: fentaNYL PF VIAL 100 MCG/2 ML VIAL IM ONE (13:10)
--- NOTE | 2020-11-15 13:23 | NUR ---
Following ECHO, patient began to have increased amount of R lower back pain. 10/10. Walking, lying down increased pain. Dr. Vargas assessed back, groin site. No indication of bleeding. No hematoma, no bruising. No pain at groin site. Patient states the pain started when he was "turning on ECHO table". Order received from Dr. Vargas to start PIV, give 50mcg Fentanyl and assess patient for one hour. If pain has not improved in one hour, patient needs to be seen in ER. RN will monitor for bruising, bleeding and notify MD palma/ any changes.
--- NOTE | 2020-11-15 14:07 | NUR ---
Patient's PIV removed. No bleeding at access site. No bruising. Pulses remain same. VS stable. Patient's pain has subsided from 04/02 to 3 after 50mcg of Fentanyl. States he remembers "jolting" when he sat down on cold wheelchair after his ECHO and "that's when the pain started". Patient has chronic back pain and will return to ER if pain increasing or there is any sign of bleeding. Able to walk to vehicle from wheelchair. Dr. Vargas notified. See VS.
--- NOTE | 2020-11-15 14:12 | CARD ---
MR#: [id number] Date of Study: 11/15/2020 Ordering Physician: HAYDEE VRAGAS, Referring Physician: HAYDEE VARGAS, Tech: Mary Polo RT(R) APPROVED REPORT Patient StatusOUT-PATIENT Wage Hand: Mary Polo RT(R) Procedure(s) performed: FL TIME: 9.7 MINS DOSE: 235 GYCM2 CONTRAST: 85 ML MODERATE SEDATION: 61 MINS Aortogram with bilateral peripheral run-off Balloon angioplasty of the LSFA with a 6x120 mm balloon HISTORY The patient is a 65 year-old female with a history of : coronary artery disease, tobacco history() : The patient is a former smoker, hypertension, dyslipidemia. INDICATION FOR PROCEDURE The indication(s) include : Bilateral claudication. CASE TECHNIQUE After explaining the risks, benefits, and alternative options, informed consent was obtained from the patient. The patient was brought electively to the Cardiac Catheterization Laboratory in a fasting s cuellar and was prepped and draped in a sterile manner. IV conscious sedation was used throughout proced ure with appropriate monitoring and was performed in the presence of a registered nurse who was an in dependent trained observer other than the physician performing the procedure. During this case, Fluor oscopy and low osmolar contrast were used for imaging. Specimen(s) Removed: N/A Estimated Blood loss: 15 cc's. PROCEDURE NARRATIVE Clinical information: 65-year-old man who presents to the hospital in the setting of a planned aortic angiogram with possib le intervention in the setting of bilateral [place] category 3 claudication limitation in his lowe r extremities. Procedure details: After proper informed consent the right groin was prepped and draped in usual sterile fashion. Under 1% lidocaine local anesthesia a 5 [place] sheath was placed in the right common femoral artery via th e modified Seldinger technique using 18-gauge needle and a J-tip guidewire. Next, a 5 [place] Omni Fl ush catheter was placed in the abdominal aorta and digital subtraction angiography of the aorta and i liac vessels were obtained. Next the Omni Flush catheter was used to engage the contralateral common iliac artery and with the aid of a glide catheter the Omni Flush catheter was placed in the left com mon femoral artery. Left lower extremity runoff was performed. Findings: Aorta mild diffuse atherosclerosis without any focal obstruction. Bilateral common iliac show moderate irregularities without any focal obstruction of up to 30% Bilateral external iliac arteries have moderate disease of up to 50% Bilateral internal iliac arteries demonstrate severe diffuse disease Left common femoral artery has no significant disease Left profunda femoris has mild diffuse atherosclerosis Left SFA has 90% in-stent restenosis of previously placed self-expanding stents from the proximal to distal segment. Left popliteal artery has mild diffuse irregularities up to 20% Left TP trunk has mild diffuse irregularities of up to 30% There is three-vessel runoff below the knee The right common femoral artery has no significant disease The right SFA is occluded proximally with distal reconstitution at the level of the abductor canal The right profunda femoris has no significant disease The right popliteal artery has no significant disease There is three-vessel runoff below the knee without any significant focal stenosis identified on limi melvina imaging. Interventional technique: Due to the patient's significant lifestyle limiting claudication and severe in-stent restenosis of th e previous proximal and mid SFA stents a decision was made to perform an intervention. Heparin was u sed for anticoagulation. The 5 [place] sheath was exchanged for a 6 [place] Terumo destination sheath which was placed in the distal external iliac artery. With the aid of a 4 [place] glide catheter and a 0.018 inch command hydrophilic short taper wire the stenosis was easily crossed. Balloon angioplas ty was performed of the in-stent restenosis with a 6.0 x 120 mm Garcia balloon. Repeat angiography d emonstrated less than 20% residual stenosis. Distal runoff was preserved. At case completion the [facility] groin sheath was removed and hemostasis was achieved with an Angio-Seal device. The patient rece ived 300 mg of Plavix and was continued on aspirin therapy. No acute complications. Conclusion 1. Porfirio category 3 bilateral lower extremity claudication 2. Severe bilateral lower extremity arterial disease 3. Successful balloon angioplasty with a 6.0 mm balloon in the left proximal and mid SFA in-stent re stenosis with less than 20% residual stenosis. Recommendations 1. Aspirin 81 mg daily 2. Plavix 75 mg daily 3. Consider staged revascularization of the right superficial femoral artery stenosis. Signed by : Haydee Vargas, Electronically Approved : 11/15/2020 14:12:11
--- NOTE | 2020-11-15 14:23 | CARD ---
MR#: [id number] Date of Study: 11/15/2020 Ordering Physician: HAYDEE POWERS, Referring Physician: HAYDEE POWERS, Tech: Cherie Barrera [facility] APPROVED REPORT EXAM: Two-dimensional and M-mode echocardiogram with Doppler and color Doppler. Other Information Quality : Technically LimitedHR: 66bpm Rhythm : NSR INDICATION Hypertension/HCVD RISK FACTORS Hypertension 2D DIMENSIONS RVDd4.1 (2.9-3.5cm)Left Atrium(2D)3.7 (1.6-4.0cm) IVSd1.2 (0.7-1.1cm)Aortic Root(2D)3.2 (2.0-3.7cm) LVDd4.0 (3.9-5.9cm)LVOT Diameter2.3 (1.8-2.4cm) PWd1.2 (0.7-1.1cm)LVDs3.0 (2.5-4.0cm) FS (%) 26.1 %SV37.0 ml LVEF(%)51.7 (>50%) Aortic Valve AoV Peak Scott.124.5cm/sAoV VTI28.7cm AO Peak GR.6.2mmHgAO Mean GR.3mmHg Mitral Valve MV E Eytawkyo37.1cm/sMV DECEL [id number] MV A Dzghffbu77.9cm/sE/A Ratio1.4 Pulmonary Valve PV Peak Tdzkjmug390.1cm/s LEFT VENTRICLE The left ventricle is normal size. There is mild concentric left ventricular hypertrophy. The left ve ntricular systolic function is normal and the ejection fraction is within normal range. Estimated eje ction fractions 60-65%. There is normal LV segmental wall motion. Tissue Doppler imaging reveals mode rate left ventricular diastolic dysfunction. RIGHT VENTRICLE The right ventricle is normal size. There is normal right ventricular wall thickness. The right ventr icular systolic function is normal. ATRIA The left atrium size is normal. The right atrium size is normal. The interatrial septum is intact wit h no evidence for an atrial septal defect or patent foramen ovale as noted on 2-D or Doppler imaging. AORTIC VALVE The aortic valve is normal in structure and function. Doppler and Color Flow revealed no significant aortic regurgitation. There is no significant aortic valvular stenosis. MITRAL VALVE The mitral valve is normal in structure and function. There is no evidence of mitral valve prolapse. There is no mitral valve stenosis. Doppler and Color Flow revealed no mitral valve regurgitation note d. TRICUSPID VALVE The tricuspid valve is normal in structure and function. Doppler and Color Flow revealed no tricuspid valve regurgitation noted. There is no tricuspid valve stenosis. PULMONIC VALVE Doppler and Color Flow revealed no pulmonic valvular regurgitation. There is no pulmonic valvular grayson nosis. GREAT VESSELS The aortic root is normal in size. The ascending aorta is normal in size. The IVC is normal in size a nd collapses >50% with inspiration. PERICARDIAL EFFUSION There is no evidence of significant pericardial effusion. Critical Notification Critical Value: No <Conclusion> The left ventricular systolic function is normal and the ejection fraction is within normal range. E stimated ejection fractions 60-65%. There is normal LV segmental wall motion. Signed by : Haydee Powers, Electronically Approved : 11/15/2020 14:22:57
== END 2020-11-15 14:05 | disposition home or self-care (01) ==
LOC: CCL 06:59
PROVIDERS: ATTEND Internal Medicine Cardiovascular Disease
DX: I73.9 Peripheral vascular disease, unspecified (principal); R06.00 Dyspnea, unspecified; I25.10 Atherosclerotic heart disease of native coronary artery without angina pectoris; I10 Essential (primary) hypertension; E78.5 Hyperlipidemia, unspecified; K21.9 Gastro-esophageal reflux disease without esophagitis; E11.9 Type 2 diabetes mellitus without complications; Z87.891 Personal history of nicotine dependence; Z79.82 Long term (current) use of aspirin; Z79.899 Other long term (current) drug therapy; Z98.890 Other specified postprocedural states; Z88.8 Allergy status to other drugs, medicaments and biological substances
CPT/HCPCS: 36415; 37224; 75625; 75716; 80048; 85027; 85347; 85610; 93306; 99152; 99153; C1725; C1760; C1769; C1892; C1894; J1644; J2250; J3010; J3490; Q9967; G0269

== ENCOUNTER 2021-02-16 08:25 | Outpatient (CLI) | payer MEDICARE, BC ==
[~2021-02-16] VITALS: Ht 182.9 cm; Wt 109.0 kg
[2021-02-16] VITALS (10 sets, daily range): BP systolic 112–151; BP diastolic 47–65
[~2021-02-16 08:25] MED LIST changes: +ASPI325T8 PO; +GABA600T7 PO; +NAPR500T8 PO; -OMEP40CA45 PO; +OMEP40CA7 PO; +POTA-121 PO; -POTA20TA4 PO
[2021-02-16] MEDS ORDERED: IODIXANOL 320 MG/ML 100 ML VIAL. ONE (08:29)
[2021-02-16] MEDS ORDERED: LIDOCAINE 1% Multi-Dose 20 ML VIAL. ONE (08:30)
[2021-02-16] MEDS ORDERED: HEPARIN for ARTERIAL LINE 1,500 ML ONE (08:30)
[2021-02-16 09:07] LABS: CALCIUM 8.8 mg/dL (8.5-10.1); GFR 74.8; POTASSIUM 3.9 mmol/L (3.5-5.1)
[2021-02-16 09:08] LABS: HEMATOCRIT 39.2 % (39.0-53.0); HEMOGLOBIN 13.3 g/dL (13.0-17.5); RED BLOOD COUNT 4.16 x10^6/uL (4.30-5.70); RED CELL DISTRIBUTION WIDTH 14.1 % (11.5-14.5); WHITE BLOOD COUNT 10.1 x10^3/uL (4.0-11.0)
[2021-02-16 09:11] LABS: PROTHROMBIN TIME PATIENT 12.9 SEC (11.7-14.0)
--- NOTE | 2021-02-16 09:27 | PDOC ---
MODERATE SEDATION ASSESSMENT RISKS/ALTERNATIVES Risks/Alternatives Risks and alternatives of this type of sedation and procedure discussed with: RISK/ALTERNATIVES: Patient H & P ON CHART H & P H & P on chart and reviewed for co-morbid conditions and appropriate labs. H&P ON CHART: Yes STATUS PREG STATUS ASSESSED: N/A MEDS/ALLERGIES REVIEWED Meds/Allergies Reviewed Medications and Allergies including time and route of recently administered narcotics and sedatives. MEDS/ALLERGIES REVIEWED: Yes ASA RATING ASA RATING: II AIRWAY ASSESSMENT Airway Assessment Airway patency, oral function limitations, presence of caps, crowns, dentures, partials, and ability to extend neck assessed. AIRWAY ASSESSMENT: Yes MALLAMPATI SCORE MALLAMPATI SCORE: II PRE-SEDATION ASSESSMENT PRE-SEDATION ASSESSMENT: Yes HAYDEE POWERS MD Feb 16, 2021 09:27
[2021-02-16] MEDS ORDERED: MIDAZOLAM HCL/PF 2 MG/2 ML VIAL. ONE (09:33)
[2021-02-16] MEDS ORDERED: fentaNYL PF VIAL 100 MCG/2 ML VIAL ONE (09:33)
[2021-02-16] MEDS ORDERED: NITROGLYCERIN 200 MCG/2 ML SYRINGE FOR CATH/VASC LAB. ONE ×3 (09:34→10:47)
[2021-02-16] MEDS ORDERED: fentaNYL PF VIAL 100 MCG/2 ML VIAL IV ONE (09:45)
[2021-02-16] MEDS ORDERED: LIDOCAINE 1% Multi-Dose 20 ML VIAL. INJ ONE (09:45)
[2021-02-16] MEDS ORDERED: NITROGLYCERIN 200 MCG/2 ML SYRINGE FOR CATH/VASC LAB. IART ONE (09:45)
[2021-02-16] MEDS ORDERED: IODIXANOL 320 MG/ML 100 ML VIAL. IART ONE (09:45)
[2021-02-16] MEDS ORDERED: MIDAZOLAM HCL/PF 2 MG/2 ML VIAL. IV ONE (09:45)
[2021-02-16] MEDS ORDERED: HEPARIN for IV BOLUS 10,000 UNIT/10 ML VIAL. ONE (09:52)
[2021-02-16] MEDS ORDERED: HEPARIN for IV BOLUS 10,000 UNIT/10 ML VIAL. IV ONE (10:15)
[2021-02-16] MEDS ORDERED: CLOPIDOGREL BISULFATE 75 MG TABLET ONE (11:09)
[2021-02-16] MEDS ORDERED: CLOPIDOGREL BISULFATE 75 MG TABLET PO ONE (11:15)
[2021-02-16] MEDS ORDERED: RIVAROXABAN 10 MG TABLET. PO SCH (12:00)
[2021-02-16] MEDS ORDERED: RIVA2.5T PO (13:28)
--- NOTE | 2021-02-16 14:54 | NUR ---
discharge instructions reviewed with patient and family. Pt tolerate PO and ambulated. Xarelta prescription called in to pt preferred pharmacy. pt discharge to home in private vehicle. PIV herlinda'd
--- NOTE | 2021-02-16 17:04 | CARD ---
MR#: [id number] Date of Study: 02/16/2021 Ordering Physician: HAYDEE VARGAS, Referring Physician: HAYDEE VARGAS, Tech: Russell Nunez RT(R)() APPROVED REPORT Patient StatusOUT-PATIENT Clicking Machine Operator: RT Carleen(R)() Procedure(s) performed: FL TIME: 10 MINS DOSE: 148 GYCM2 CONTRAST: 76 ML MODERATE SEDATION: 98 MINS Right lower extremity runoff with complex SFA NEWSPAPER WRITER recanalization and balloon angioplasty CASE TECHNIQUE After explaining the risks, benefits, and alternative options, informed consent was obtained from the patient. IV conscious sedation was used throughout procedure with appropriate monitoring and was per formed in the presence of a registered nurse who was an independent trained observer other than the irina gordon performing the procedure. During this case, Fluoroscopy and low osmolar contrast were used f or imaging. Specimen(s) Removed: N/A PROCEDURE NARRATIVE Clinical information: 65-year-old male who has bilateral lower extremity claudication. He previously underwent left lower extremity intervention with balloon angioplasty of in-stent restenosis. He returns for staged PVI of the right lower extremity as he has had some significant improvement in his left leg. After proper informed consent the patient was brought to the catheterization laboratory Procedure details: Under 1% lidocaine local anesthesia a 5 [place] sheath was placed in the left common femoral artery. Next with the aid of a 5 [place] Omni Flush catheter J-tipped guidewire is advanced to the distal exte rnal iliac. Digital subtraction angiography was performed in sequential fashion. Findings: Right common femoral artery has no significant disease Right profunda is within normal limits Right SFA has a percent proximal chronic total occlusion. The distal vessel seen to fill via robust profunda collaterals at the level of the abductor canal. Right popliteal artery has no significant disease Right tibioperoneal trunk has moderate disease. Right anterior tibial and posterior tibial vessels are grossly within normal limits Interventional technique: Based on the patient's presenting symptoms of bilateral lifestyle limiting lower extremity claudicati on which was previously improved after left lower extremity revascularization a decision was made to proceed with intervention. Heparin was used for anticoagulation. The patient was previously on aspi rin and Plavix. The 5 [place] sheath was exchanged for a 6 [place] Terumo destination sheath which was placed in the right common femoral artery. Next with the aid of a 0.018 inch command wire and a 0.0 38 inch Solis cross support catheter the SFA NEWSPAPER WRITER was traversed. Balloon angioplasty was performed wit h a 4.0 x 150 [place] balloon followed by 5.0 x 200 mm [place] balloon. Intraarterial nitroglycerin wa s administered and repeat angiography demonstrated excellent flow and robust runoff. [facility] The patient received Plavix and Xarelto. At case completion the left-sided groin sheath was removed and hemostasis was achieved via manual com pression. No acute complications noted. Conclusion 1. Severe Porfirio category 3 bilateral lower extremity claudication 2. Successful complex PVI of the right SFA with balloon angioplasty of a chronic total occlusion wit h a 5 x 200 mm balloon with residual 0% stenosis 3. Moderate diffuse other PAD. Recommendations Plavix 75 mg daily Xarelto 2.5 mg p.o. twice daily Continue high-dose statin therapy and walking program. Signed by : Haydee Vargas, Electronically Approved : 02/16/2021 17:04:09
== END 2021-02-16 14:57 | disposition home or self-care (01) ==
LOC: CCL 08:25
PROVIDERS: ATTEND Internal Medicine Cardiovascular Disease
DX: I70.213 Atherosclerosis of native arteries of extremities with intermittent claudication, bilateral legs (principal); E11.51 Type 2 diabetes mellitus with diabetic peripheral angiopathy without gangrene; I10 Essential (primary) hypertension; K21.9 Gastro-esophageal reflux disease without esophagitis; M19.90 Unspecified osteoarthritis, unspecified site; Z98.890 Other specified postprocedural states
CPT/HCPCS: 36415; 37224; 75710; 80048; 85027; 85347; 85610; 99152; 99153; C1725; C1760; C1769; C1887; C1894; J1644; J2250; J3010; J3490; Q9967; G0269